=== PATIENT | male | born 1955 | race Caucasian/White ===

== ENCOUNTER 2024-09-07 08:38 | Day surgery (SDC) | payer MEDICARE, OTHER ==
[2024-09-07] MEDS: Lactated Ringers 1,000 ML IV SCH (09:25)
[2024-09-07] MEDS ORDERED: Propofol 200 MG/20 ML SDV ONE (10:16)
[2024-09-07] MEDS ORDERED: propofoL 500 MG/50 ML 50 ML ONE (10:16)
[2024-09-07] MEDS ORDERED: Lactated Ringers 1,000 ML IV SCH (10:30)
[2024-09-07 11:34] VITALS: BP 122/64; PULSE 65
== END 2024-09-07 11:07 | disposition home or self-care (01) ==
LOC: MW.SDS 08:38
PROVIDERS: ATTEND Surgery
DX: Z12.11 Encounter for screening for malignant neoplasm of colon (principal); K21.9 Gastro-esophageal reflux disease without esophagitis; I10 Essential (primary) hypertension; E66.9 Obesity, unspecified; Z88.8 Allergy status to other drugs, medicaments and biological substances; Z88.5 Allergy status to narcotic agent; Z68.30 Body mass index [BMI] 30.0-30.9, adult; Z79.899 Other long term (current) drug therapy
CPT/HCPCS: G0121; J2704; J7120